=== PATIENT | female | born 1975 | race Caucasian/White ===

== ENCOUNTER 2016-07-23 12:55 | Emergency (ER) | payer OTHER | END 2016-07-23 13:48 | disposition home or self-care (01) | LOC: ER 12:55 | DX: M10.9 Gout, unspecified (principal); F41.9 Anxiety disorder, unspecified; F17.210 Nicotine dependence, cigarettes, uncomplicated; Z79.899 Other long term (current) drug therapy ==

== ENCOUNTER 2016-08-06 14:13 | Emergency (ER) | payer OTHER | END 2016-08-06 15:28 | disposition home or self-care (01) | LOC: ER 14:13 | DX: M19.072 Primary osteoarthritis, left ankle and foot (principal); F41.9 Anxiety disorder, unspecified; F17.210 Nicotine dependence, cigarettes, uncomplicated ==